=== PATIENT | female | born 1965 | race Caucasian/White ===

== ENCOUNTER 2016-12-05 10:00 | Outpatient (CLI) | payer OTHER ==
[2016-12-05 10:55] LABS: ALT (SGPT) 13 U/L (0-55); AST (SGOT) 20 U/L (5-34); Alkaline Phosphatase 70 U/L (40-150); Anion Gap 13 mmol/L (10-20); BUN (Urea Nitrogen) 15 mg/dL (9.8-20.1); Bilirubin, Total 0.9 mg/dL (0.2-1.2); Calc. Creatinine Clearance 0 mL/min (70-130); Calcium 9.7 mg/dL (7.8-10.44); Carbon Dioxide 26 mmol/L (22-29); Chloride 104 mmol/L (98-107); Estimated GFR-MDRD 78; Globulin 3.2 g/dL (2.4-3.5); Protein, Total 7.5 g/dL (6.0-8.3)
== END 2016-12-05 10:01 | disposition home or self-care (01) ==
LOC: HPCALD 10:00
PROVIDERS: ATTEND Family Medicine
DX: E03.9 Hypothyroidism, unspecified (principal)
CPT/HCPCS: 36415; 80053; 84443

== ENCOUNTER 2021-01-13 11:31 | Emergency (ER) | payer BC ==
[2021-01-13] MEDS ORDERED: Boostrix 0.5 ML (Tdap) VIAL ONE (11:56)
--- NOTE | 2021-01-13 13:29 | RAD ---
RIGHT HAND 3 VIEWS: DATE: 01/13/2021. FINDINGS: No fracture or opaque foreign body was seen. The thumb and associated joints appear intact. The car pal bones appear normal. IMPRESSION: No acute bony finding. POS: HOME
== END 2021-01-13 12:45 | disposition home or self-care (01) ==
LOC: BURERS 11:31
DX: S81.832A Puncture wound without foreign body, left lower leg, initial encounter (principal); Z87.891 Personal history of nicotine dependence; W54.0XXA Bitten by dog, initial encounter
CPT/HCPCS: 90471; 90715

== ENCOUNTER 2022-03-15 11:40 | Emergency (ER) | payer BC | END 2022-03-15 13:00 | disposition home or self-care (01) | LOC: BURERS 11:40 | DX: S46.912A Strain of unspecified muscle, fascia and tendon at shoulder and upper arm level, left arm, initial encounter (principal); M79.2 Neuralgia and neuritis, unspecified; Z87.891 Personal history of nicotine dependence; X50.9XXA Other and unspecified overexertion or strenuous movements or postures, initial encounter | CPT/HCPCS: 93005 ==

== ENCOUNTER 2024-05-30 09:30 | Emergency (ER) | payer BC | END 2024-05-30 10:05 | disposition home or self-care (01) | LOC: BURERS 09:30 | DX: H92.03 Otalgia, bilateral (principal); Z87.891 Personal history of nicotine dependence | CPT/HCPCS: 99283 ==

== ENCOUNTER 2024-12-07 18:23 | Emergency (ER) | payer BC ==
[2024-12-07 19:08] LABS: #Basophils 0.2 thou/uL (0.0-0.2); #Eosinophils 0.1 thou/uL (0.0-0.7); #Lymphocytes 3.5 thou/uL (1.20-3.40); #Monocytes 0.7 thou/uL (0.11-0.59); #Neutrophils 5.2 thou/uL (1.40-6.50); %Basophils 1.8 % (0.0-1.0); %Eosinophils 0.8 % (0.0-10.0); %Lymphocytes 36.2 % (21.0-51.0); %Monocytes 7.3 % (0.0-10.0); %Neutrophils 53.9 % (42.0-75.0); Hematocrit 41.5 % (36.0-47.0); Hemoglobin 13.5 g/dL (12.0-16.0); Mean Corpuscular HGB CONC 32.7 g/dL (32.0-36.0); Mean Corpuscular Hemoglobin 27.5 pg (27.0-31.0); Mean Corpuscular Volume 84.4 fl (78.0-98.0); Mean Platelet Volume 6.3 fL (7.4-10.4); Platelet Count 427 10x3/uL (130-400); RBC Distribution Width 11.5 % (11.5-14.5); Red Blood Cell (RBC) Count 4.91 mill/uL (4.20-5.40); White Blood Cell (WBC) Count 9.6 10x3/uL (4.8-10.8)
[2024-12-07 19:24] LABS: ALT (SGPT) 21 U/L (8-55); AST (SGOT) 13 U/L (5-34); Albumin 3.6 g/dL (3.5-5.0); Alkaline Phosphatase 81 U/L (40-110); Anion Gap 15 mmol/L (10-20); BUN (Urea Nitrogen) 17 mg/dL (9.8-20.1); Bilirubin, Total 0.4 mg/dL (0.2-1.2); Calc. Creatinine Clearance 0 mL/min (70-130); Calcium 9.2 mg/dL (7.8-10.44); Carbon Dioxide 26 mmol/L (22-29); Chloride 106 mmol/L (98-107); Estimated GFR 82; Globulin 3.1 g/dL (2.4-3.5); Glucose 99 mg/dL (70-105); Potassium 4.6 mmol/L (3.5-5.1); Protein, Total 6.7 g/dL (6.0-8.3); Sodium 142 mmol/L (136-145)
[2024-12-07 19:25] LABS: Troponin I Less than 0.010 ng/mL (< 0.028)
[2024-12-07] MEDS ORDERED: Aspirin 81 mg Enteric Coated Tablet ONE (22:06)
[2024-12-07] MEDS ORDERED: Aspirin Chewable 81 MG TAB ONE (22:07)
== END 2024-12-07 22:28 | disposition short-term general hospital (02) ==
LOC: BURERS 18:23
DX: I20.9 Angina pectoris, unspecified (principal)
CPT/HCPCS: 71045; 80053; 83880; 84443; 84484; 85025; 85379; 93005

== ENCOUNTER 2025-04-13 13:43 | Outpatient (CLI) | payer BC | END 2025-04-13 13:44 | disposition home or self-care (01) | LOC: BURRAD 13:43 | PROVIDERS: ATTEND Nurse Practitioner Family | DX: R06.2 Wheezing (principal); R05.3 Chronic cough; J98.4 Other disorders of lung | CPT/HCPCS: 71046 ==